=== PATIENT | male | born 1960 | race Caucasian/White ===

== ENCOUNTER → 2017-05-23 | Outpatient (CLI) | payer OTHER ==
[~2017-05-23] MED LIST: LISINOPRIL-HCT1 EAC1 PO; STRATTERA10 MG PO
== END ==
LOC: M.ULTRA 14:25
DX: E04.9 Nontoxic goiter, unspecified (principal)

== ENCOUNTER → 2018-04-01 | Outpatient (CLI) | payer OTHER | LOC: M.ULTRA 07:17 | DX: K76.0 Fatty (change of) liver, not elsewhere classified (principal) ==

== ENCOUNTER → 2018-05-28 | Outpatient (CLI) | payer BC, OTHER ==
--- NOTE | 2018-06-02 14:10 | TST ---
[place] [address] [employer] STRESS TEST Name: ISAAC VASQUEZ Room: [facility]#: [id number] Admission: 05/28/18 Attend Phys: Anneliese Villabla MD Discharge: Date of : 60 Date of Service: 05/28/18 1629 Report #: [id number] THIS REPORT FOR: //name// CC: Anneliese Villalba MD DATE OF SERVICE: 05/28/2018 REFERRING PHYSICIAN: Dr. Villalba. PROCEDURE: Standard Joe protocol exercise stress test. INDICATION: Chest pain. CORONARY HISTORY: None. CARDIAC RISK FACTORS: Hyperlipidemia, hypertension, and family history of coronary artery disease. CARDIAC MEDICATIONS: Bystolic. The patient exercised per standard Joe protocol for a total of 9 minutes and 23 seconds. The resting blood pressure was 142/103 mmHg with a resting heart rate of 83 beats per minute. At peak exercise, the blood pressure was 195/81 mmHg with a peak stress heart rate of 146 beats per minute. The recovery blood pressure was 161/95 mmHg with recovery heart rate of 113 beats per minute. The patient achieved 90% of age predicted maximum heart rate and then energy expenditure equivalent to 10.75 METs. The patient had slight dyspnea and fatigue with peak exercise, but no chest pain to suggest angina. The baseline 12-lead EKG shows sinus rhythm with no significant ST or T-wave abnormalities. EKGs obtained during and post-exercise shows sinus rhythm and sinus tachycardia with no significant ST or T-wave changes when compared to baseline to suggest ischemia. There were no significant stress-induced arrhythmias. IMPRESSION: 1. No clinical evidence of stress-induced ischemia. 2. No electrocardiographic evidence of stress-induced ischemia. 3. The patient exhibited adequate exercise tolerance. [address] [address] [employer] [employer]ESS TEST Name: ISAAC VASQUEZ Room: [facility]#: [id number] Admission: 05/28/18 Attend Phys: Anneliese Villalba MD Discharge: Date of : 60 Date of Service: 05/28/18 1629 Report #: [id number] CONCLUSION: This standard Joe protocol exercise stress test shows no evidence to suggest stress-induced ischemia. <ELECTRONICALLY SIGNED> By: Rigoberto Nieves MD, FACC 06/02/18 1410 1629 1880 Rigoberto Nieves MD, FACC /nt
== END ==
LOC: M.CRD 12:58
DX: I10 Essential (primary) hypertension (principal); E78.2 Mixed hyperlipidemia; Z82.49 Family history of ischemic heart disease and other diseases of the circulatory system

== ENCOUNTER 2019-03-09 10:05 | Inpatient (IN) | payer BC, OTHER ==
[~2019-03-09] VITALS: Ht 177.8 cm; Wt 93.0 kg
[2019-03-09 10:10] VITALS: BP 153/101
[2019-03-09] MEDS ORDERED: BYSTOLIC 5 MG5 MG PO (10:13)
[2019-03-09 10:50] LABS: ABSOLUTE EOSINOPHILS 0.1 thou/uL (0.0-0.7); ABSOLUTE LYMPHOCYTES 1.3 thou/uL (0.8-5.3); ABSOLUTE MONOCYTES 0.5 thou/uL (0.0-1.2); ABSOLUTE NEUTROPHILS 5.3 thou/uL (1.6-8.1); BASOPHILS 0.6 %; EOSINOPHILS 1.5 %; HEMATOCRIT 45.5 % (42.0-52.0); HEMOGLOBIN 15.8 gm/dL (14.0-18.0); LYMPHOCYTES 17.6 %; MCH 29.7 pg (26.0-34.0); MCHC 34.7 g/dL (28.0-37.0); MCV 85.5 fL (80.0-100.0); NUCLEATED RBCS 0 /100WBC; PLATELET COUNT* 205 thou/uL (150-400); POLYS 73.3 %; RBC 5.31 mil/uL (4.50-6.00); RDW-CV 14.9 % (10.5-14.5); WBC 7.3 thou/uL (4.0-11.0)
[2019-03-09 10:57] LABS: CALCIUM 8.7 mg/dL (8.5-10.1); CREATININE 1.1 mg/dL (0.6-1.3); POTASSIUM 4.2 mmol/L (3.5-5.1)
[2019-03-09 11:01] LABS: ALBUMIN 3.9 g/dL (3.4-5.0); TOTAL BILIRUBIN 0.4 mg/dL (<0.1-1.0); TOTAL PROTEIN 7.6 g/dL (6.4-8.2)
[2019-03-09 11:33] LABS: URINE BILIRUBIN NEGATIVE (Negative); URINE BLOOD 3+ (Negative); URINE CLARITY CLEAR; URINE COLOR YELLOW; URINE GLUCOSE-RANDOM NEGATIVE (Negative); URINE KETONES NEGATIVE (Negative); URINE LEUKOCYTES-REFLEX NEGATIVE (Negative); URINE NITRITE-REFLEX NEGATIVE (Negative); URINE PROTEIN NEGATIVE (Negative); URINE SPECIFIC GRAVITY 1.025 (1.005-1.030); URINE UROBILINOGEN 0.2 E.U./dl (0.2-1.0)
[2019-03-09 11:42] LABS: SQUAMOUS 0-3 Few /LPF (0-3); URINE WBC-REFLEX None Seen /HPF (0-5)
[2019-03-09 11:43] LABS: BACTERIA-REFLEX None Seen /HPF (None Seen); CASTS None Seen /LPF (None Seen); MUCUS >6 Heavy strn/LPF (None Seen); URINE RBC 3-10 Few /HPF (0-2)
[2019-03-09 11:44] LABS: CRYSTALS None Seen /LPF (None Seen)
[2019-03-09 13:22] VITALS: BP 133/78
[2019-03-09 15:00] VITALS: BP 140/89
[2019-03-09 20:21] VITALS: BP 131/77
[2019-03-10 04:15] LABS: HEMATOCRIT 43.3 % (42.0-52.0); MCH 29.8 pg (26.0-34.0); MCHC 34.7 g/dL (28.0-37.0); MPV 6.9 fl. (7.2-11.1); RBC 5.04 mil/uL (4.50-6.00); RDW-CV 14.7 % (10.5-14.5); WBC 5.2 thou/uL (4.0-11.0)
[2019-03-10 04:48] LABS: CALCIUM 7.7 mg/dL (8.5-10.1); POTASSIUM 4.6 mmol/L (3.5-5.1)
[2019-03-10 09:00] VITALS: BP 136/80
[2019-03-10] MEDS ORDERED: FLOMAX0.4 MG PO (11:46)
[2019-03-10] MEDS ORDERED: CIPRO250 M2 PO (11:47)
[2019-03-10] MEDS ORDERED: ZOFRAN4 MG PO (11:47)
[2019-03-10 11:48] VITALS: BP 136/80
[2019-03-10] MEDS ORDERED: ADVIL200 M1 PO (11:52)
[2019-03-10] MEDS ORDERED: NORCO 5-325 TA1 EAC1 PO ×5 (13:04→14:19)
== END 2019-03-10 12:35 | disposition home or self-care (01) | DRG 694 ==
LOC: M.ERS 10:05 → M.ORTHSURG 12:10 → M.TBA-ER 12:10 → M.ORTHSURG 13:36
PROVIDERS: Family Medicine; Nurse Practitioner Adult Health; ADMIT Internal Medicine
DX: N13.2 Hydronephrosis with renal and ureteral calculous obstruction (principal); I10 Essential (primary) hypertension; E78.5 Hyperlipidemia, unspecified; R31.29 Other microscopic hematuria; Z79.899 Other long term (current) drug therapy